=== PATIENT | male | born 1990 | race Caucasian/White ===

== ENCOUNTER 2016-11-11 08:22 | Emergency (ER) | payer OTHER ==
[2016-11-11 08:27] VITALS: RESP 18
[2016-11-11] MEDS ORDERED: TDAP ADULT 0.5 ML INJ (BOOSTRIX) IM ONE (09:20)
--- NOTE | 2016-11-11 09:26 | EDPHY ---
H & P Time Seen by Provider: 11/11/16 08:31 HPI/ROS: CHIEF COMPLAINT: left hand laceration HISTORY OF PRESENT ILLNESS: 25-year-old male who is [id number] presents with a laceration to his left hand from a broken jar. Patient reports he is unable to fully extend his finger. Unknown tetanus status. No numbness or tingling in his hand. Smoking Status: Never smoked Physical Exam: GEN: Awake, alert, oriented, no acute distress RESP: nl resp effort MSK: left middle Finger with 1.5cm laceration to dorsal aspect over mcp joint, unable to extend finger at mcp joint. 2 point discrimination intact. Constitutional: Initial Vital Signs Temperature (C) 36.5 C 11/11/16 08:23 Heart Rate 68 11/11/16 08:23 Respiratory Rate 18 11/11/16 08:23 Blood Pressure 127/66 H 11/11/16 08:23 O2 Sat (%) 98 11/11/16 08:23 O2 Delivery Mode Room Air Allergies/Adverse Reactions: No Known Allergies Allergy (Unverified 11/11/16 08:27) Home Medications: Medication Instructions Recorded Cephalexin [Keflex] 500 mg PO TID 5 Days 11/11/16 MDM/Departure - MDM Imaging Results: Imaging Impressions Hand X-Ray 11/11/16 09:20 Impression: There is no radiopaque foreign body identified, nor is there any acute osseous abnormality. Imaging: I viewed and interpreted images myself Procedures: Procedure: Laceration repair. Verbal consent was obtained from the patient. The 2 cm laceration on the left hand was anesthetized using 1% lidocaine without epinephrine. The wound was carefully irrigated by the emergency department electrocardiogram technician. Next, the wound was prepped and draped in sterile fashion and explored to its base with a gloved finger. Extensor tendon laceration . No vascular injury was identified. No foreign bodies were identified. The wound was repaired with 5.0 Prolene, 4 simple interrupted sutures. The wound repair was simple. The procedure was performed by myself. Tetanus and antibiotic status were addressed. Medications Given: Discontinued Medications Diphtheria/Tetanus/Acell Pertussis (Boostrix) 0.5 ml IM .ONCE ONE Stop: 11/11/16 09:21 Last Admin: 11/11/16 09:35 Dose: 0.5 ml Cefazolin Sodium/Dextrose (Ancef 1 Gm (Premix)) 50 mls @ 200 mls/hr IV EDNOW ONE PRN Reason: Protocol Stop: 11/11/16 09:31 Last Admin: 11/11/16 09:33 Dose: 50 mls ED Course/Re-evaluation: I consulted with Dr. Lu regarding this patients extensor tendon laceration on his left hand. He is requesting we suture the skin and have him follow up in office for follow up and tendon repair. Patient is given Ancef IV. He is discharged with a prescription for Keflex. Tetanus is updated today. - Depart Disposition: Home, Routine, Self-Care Clinical Impression: Laceration of left hand involving tendon Qualifiers: Encounter type: initial encounter Qualified Code(s): S61.412A - Laceration without foreign body of left hand, initial encounter Condition: Good Instructions: Tendon Laceration (ED) Additional Instructions: Follow up with the hand surgeon. Call today to schedule this appointment to see him in the next day or 2. Keep your dressing clean and dry until you see him. Take your antibiotics as prescribed. Prescriptions: Cephalexin [Keflex] 500 mg PO TID 5 Days Referrals: Daljit Lu MD [Medical Doctor] - As per Instructions
[2016-11-11 10:29] VITALS: BP 142/76; PULSE 64; TEMP 97.5; O2SAT 95
== END 2016-11-11 10:28 | disposition home or self-care (01) ==
PROC: 0HQGXZZ Repair Left Hand Skin, External Approach (ICD-10-PCS; principal; 2016-11-11)
DX: S61.412A Laceration without foreign body of left hand, initial encounter (principal); Z23 Encounter for immunization; W26.8XXA Contact with other sharp object(s), not elsewhere classified, initial encounter; Y92.69 Other specified industrial and construction area as the place of occurrence of the external cause; Y99.0 Civilian activity done for income or pay
CPT/HCPCS: 96365; J0690; L3925